=== PATIENT | female | born 1960 | race Caucasian/White ===

== ENCOUNTER 2022-01-23 07:32 | Outpatient (CLI) | payer OTHER, SELFPAY ==
--- NOTE | 2022-01-23 07:42 | MR_ITS ---
WS: [id number] MRA CAROTID ARTERIES HISTORY: R29.818 - Other symptoms and signs involving the nervous ... COMPARISON: None available. TECHNIQUE: MRA is performed with intravenous gadolinium. MIP and source images are reviewed. Right: Normal common carotid artery. There is loss of signal in a short segment of the proximal RIGHT ICA which needs further evaluation. There is also focal area of stenosis and loss of signal involvin g the proximal external carotid artery. Left: Normal caliber. No significant atherosclerotic disease identified. No internal carotid artery s tenosis or narrowing. Vertebral Arteries: Vertebral arteries are patent with the LEFT being dominant. Proximal vertebral ar teries are poorly visualized due to breathing artifact from the chest. MR/MR angio neck wo con [id number] IMPRESSION: 1. Loss of signal involving the proximal RIGHT ICA. High-grade stenosis versus occlusion suspected. Recommend follow-up CT angiogram carotid arteries. 2. LEFT ICA is patent. 3. Patent vertebral arteries. No stenosis.
--- NOTE | 2022-01-23 08:00 | MR_ITS ---
WS: [id number] MRI BRAIN WITHOUT CONTRAST HISTORY: R29.818 - Other symptoms and signs involving the nervous ... COMPARISON: None available. TECHNIQUE: Diffusion imaging, multiplanar T1, T2 and FLAIR imaging obtained. No evidence for acute infarct or hemorrhage. [place]-white matter differentiation is normal. No prior infarct. Minimal small vessel ischemic changes in the white matter. No prior infarct. No hem orrhage. There is a very small of increased signal in the [place] bilaterally. Ventricles and extra-axial spaces are normal. No inferior displacement of cerebellar tonsils. The sella turcica and pituitary gland are unremarkabl e. Dural venous sinuses and [place] demonstrate no abnormality on this unenhanced studies. Paranasal sinuses: Extensive mucoperiosteal thickening throughout the sinus cavities. No air-fluid le vels. Mastoid air cells: Effusions and mastoid air cells bilaterally, greatest on the RIGHT. Calvarium and scalp: Intact. MR/MR head wo con* [id number] IMPRESSION: 1. No acute infarct or hemorrhage. 2. Very minimal small vessel ischemic disease. Mild ischemia in the [place]. 3. Pansinusitis.
--- NOTE | 2022-01-23 09:30 | MR_ITS ---
WS: [id number] MRA ANGIOGRAPHY [place] HISTORY: Dizziness and weakness. Fatigue. Short of breath. COMPARISON: None available. TECHNIQUE: 3-D MR angiography is performed of the [place]. All images are reviewed including source images. Distal vertebral and basilar arteries are intact with no significant stenosis or plaque. Posterior ce rebral arteries are normal course and caliber. Posterior communicating arteries are both patent. LEFT posterior communicating artery is smaller caliber but patent. There is a very small amount of plaque with narrowing of the lumen involving the LEFT petrous portion of the ICA. No high-grade stenosis. Mild calcified plaque through the cavernous sinuses with no high -grade stenosis. No aneurysm. Very minimal MCA artery atherosclerosis. No occlusions or aneurysms. No high-grade stenosis. Absent RIGHT A1 segment. There is a very tiny focal protrusion involving the proximal RIGHT A2 segmen t which should be close to the junction with the A1 segment. This could potentially be a very tiny an eurysm approximately 2 mm. MR/MR angio head wo con [id number] IMPRESSION: 1. 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 2. Very minimal atherosclerotic plaque within the intracranial carotid arterie s as described above with no high-grade stenosis. 3. 2 mm protrusion in the proximal RIGHT A2 segment. Could potentially be a sm all aneurysm. This is at the expected junction with the A1 segment is not absen t. Recommend follow-up CT angiogram [place]. Please note that a caroti d CT angiogram was also recommended. These examinations can be performed at the same time. 4. Very mild atherosclerosis middle cerebral arteries.
== END 2022-01-23 07:33 | disposition home or self-care (01) ==
PROVIDERS: PCP Physician Assistant; Visit Provider Nurse Practitioner
DX: R29.818 Other symptoms and signs involving the nervous system (principal); J32.4 Chronic pansinusitis
CPT/HCPCS: 70544; 70547; 70551

== ENCOUNTER 2022-03-06 08:05 | Outpatient (CLI) | payer OTHER, SELFPAY ==
--- NOTE | 2022-03-06 08:30 | CT_ITS ---
WS: [id number] CTA HEAD AND NECK TECHNIQUE: Contrast enhanced CTA of the head and neck with coronal and sagittal reformatted images an d maximum intensity projection (MIP) images. NASCET criteria utilized. CLINICAL INFORMATION: I65.29 - Occlusion and stenosis of unspecified carotid ar... COMPARISON: MRA January 23, 2022 DLP: 1292.[address] scans at [facility] use at least one of these dose optimization techniques: automated e xposure control; mA and/or kV adjustment per patient size (includes targeted exams where dose is matc hed to clinical indication); or iterative reconstruction. FINDINGS: RIGHT: RIGHT common carotid artery is patent. Mild calcification RIGHT common carotid artery origin. Moderate calcified atheromatous disease RIGHT carotid bulb extending into the ICA. RIGHT proximal ICA stenosis measures approximately 75-80%. RIGHT ICA remains patent to the skull base. RIGHT ICA stenos is approximately 1.1 cm distal to the bifurcation. LEFT: LEFT common carotid artery is patent. Mild calcified atheromatous plaque LEFT carotid bulb exte nding into the ICA. No significant LEFT ICA stenosis. LEFT ICA is patent to the skull base. Both vertebral arteries are patent. LEFT dominant vertebral artery is patent. Vertebral arteries are patent to the basilar junction. INTRACRANIAL CTA: Proximal basilar artery is patent. Normal vascularity to the G[employer]IC[employer] territory bilaterally. Both ICAs are patent at the skull base. Mild cavernous carotid calcification. 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 Normal vascularity to the AMANDA and MCA territories bilaterally. No evidence of high-grade prox imal stenosis or aneurysm. No visualized aneurysm of the RIGHT A2 segment in the area of previously d escribed irregularity on the MRA. Mastoid air cells well aerated. A few secretions in the LEFT maxillary sinus. Emphysematous changes i n the lung apices. CT/CT angio headneck* [id number] IMPRESSION: 1. Significant RIGHT proximal ICA stenosis approximately 1.1 cm distal to the bifurcation measuring approximately 75-80%. Residual lumen measuring 1.6 mm. RI GHT ICA remains patent to the skull base. 2. No significant LEFT ICA stenosis. 3. LEFT dominant vertebral artery. Both vertebral arteries are patent. 4. Unremarkable intracranial CTA.
[2022-03-06 08:41] LABS: Blood Urea Nitrogen 4 mg/dL (8-23); Glomerular Filtration Rate 63.4 mL/min (90-130)
[2022-03-06] MEDS: iohexol 350 mg/mL 100 mL Btl IV (09:00)
== END 2022-03-06 08:06 | disposition home or self-care (01) ==
PROVIDERS: PCP Physician Assistant; Visit Provider Specialist
DX: I65.21 Occlusion and stenosis of right carotid artery (principal)
CPT/HCPCS: 70496; 70498; 82565; 84520

== ENCOUNTER → 2023-02-17 11:51 | Outpatient (BNVA) | payer OTHER, SELFPAY | PROVIDERS: PCP Physician Assistant; Visit Provider Internal Medicine | DX: R76.8 Other specified abnormal immunological findings in serum (principal); R53.83 Other fatigue; M25.50 Pain in unspecified joint; R55 Syncope and collapse; J44.9 Chronic obstructive pulmonary disease, unspecified; L40.9 Psoriasis, unspecified; M19.042 Primary osteoarthritis, left hand; M85.88 Other specified disorders of bone density and structure, other site | CPT/HCPCS: 36415; 72202; 73120; 80053; 81001; 82306; 82533; 82550; 82607; 82728; 83516; 83540; 83735; 84100; 84439; 84443; 85025; 85651; 86140; 86160; 86162; 86200; 86235; 86255; 86376; 86431; 86704; 86803; 87340 ==